=== PATIENT | male | born 1975 | race African-American/Black ===

== ENCOUNTER 2017-03-18 12:38 | Emergency (ER) | payer OTHER ==
[~2017-03-18] VITALS: Ht 175.3 cm; Wt 72.6 kg
[2017-03-18 13:00] VITALS: BP 146/93
[2017-03-18] MEDS ORDERED: AMOX500C PO (13:23)
--- NOTE | 2017-03-18 13:23 | PHYS DOC ---
Past Medical History Past Medical History: No Pertinent History Past Surgical History: Other Additional Past Surgical Histo: RIGHT TEAR DUCT REPAIR Additional Information: 0.5 PPD Alcohol Use: Heavy Drug Use: None Adult General Chief Complaint Chief Complaint: DENTAL PROBLEM HPI HPI Patient is a 42 year old male presents emergency Department stating he's having dental pain. He states he's been having the pain for the last 2-3 days. He states his been taken 800 mg of ibuprofen for the pain and discomfort. Denies any foul taste denies any fever, chills or any nausea vomiting. Patient also states that he has a few loose teeth. He denies any trauma or injury. Review of Systems Review of Systems Constitutional: Denies fever or chills [] Eyes: Denies change in visual acuity, redness, or eye pain [] HENT: Denies nasal congestion or sore throat. Complaint of dental pain Respiratory: Denies cough or shortness of breath [] Cardiovascular: No additional information not addressed in HPI [] GI: Denies abdominal pain, nausea, vomiting, bloody stools or diarrhea [] : Denies dysuria or hematuria [] Musculoskeletal: Denies back pain or joint pain [] Integument: Denies rash or skin lesions [] Neurologic: Denies headache, focal weakness or sensory changes [] Endocrine: Denies polyuria or polydipsia [] Allergies Allergies Allergies Coded Allergies Type Severity Reaction Last Updated Verified No Known Drug Allergies 05/01/15 No Physical Exam Physical Exam Constitutional: Well developed, well nourished, no acute distress, non-toxic appearance. [] HENT: Normocephalic, atraumatic, bilateral external ears normal, oropharynx moist, no oral exudates, nose normal. Bilateral tympanic membranes appear to be normal. Patient with abscess noted along the #4 tooth. Patient with no erythematous no exudate and no redness noted in the throat area. No anterior cervical adenopathy noted. Eyes: PERRLA, EOMI, conjunctiva normal, no discharge. [] Neck: Normal range of motion, no tenderness, supple, no stridor. [] Cardiovascular:Heart rate regular rhythm, no murmur [] Lungs & Thorax: Bilateral breath sounds clear to auscultation [] Skin: Warm, dry, no erythema, no rash. [] Back: No tenderness Extremities: No tenderness, no cyanosis, no clubbing, ROM intact, no edema. [] Neurologic: Alert and oriented X 3, normal motor function, normal sensory function, no focal deficits noted. [] Psychologic: Affect normal, judgement normal, mood normal. [] Current Patient Data Vital Signs Vital Signs Date Time Temp Pulse Resp B/P (MAP) Pulse Ox O2 Delivery O2 Flow Rate FiO2 03/18/17 13:00 98.3 72 20 100 Room Air 98.3 EKG EKG [] Radiology/Procedures Radiology/Procedures [] Course & Med Decision Making Course & Med Decision Making Pertinent Labs and Imaging studies reviewed. (See chart for details) Recommended plenty of fluids, Tylenol or ibuprofen for pain and discomfort. Patient will be placed on amoxicillin 4 times a day. Recommended the patient use warm salt water mouth rinses 4 times a day and prior to bedtime. Recommended to continue to brush and floss teeth twice a day. Recommended following up with the dentist within the next week. Signs symptoms to return back to emergency department as been provided. Patient agrees with discharge instructions treatment regimens and follow-up recommendations. [] Dragon Disclaimer Dragon Disclaimer This electronic medical record was generated, in whole or in part, using a voice recognition dictation system. Departure Departure Impression: Primary Impression: Dental abscess Disposition: 01 HOME, SELF-CARE Condition: STABLE Referrals: NO PCP (PCP) Patient Instructions: Dental Abscess Additional Instructions: Medication as prescribed. Tylenol or ibuprofen for fever chills generalized body aches and discomfort as well as for pain. Warm salt water mouth rinses 4 times a day and prior to bedtime. Plusher teeth and pressure teeth at least twice day. Follow-up to her dentist within the next week. Return back to emergency prior signs and symptoms of become worse. Scripts Amoxicillin (AMOXICILLIN) 500 Mg Capsule 1 CAP PO QID, #40 CAP Prov: NE PERERA APRN 03/18/17 NE PERERA [facility] Mar 18, 2017 13:23
== END 2017-03-18 13:30 | disposition home or self-care (01) ==
LOC: ER 12:38
DX: K04.7 Periapical abscess without sinus (principal); F17.200 Nicotine dependence, unspecified, uncomplicated; F10.10 Alcohol abuse, uncomplicated
CPT/HCPCS: 99283

== ENCOUNTER 2018-10-11 15:22 | Emergency (ER) | payer SELFPAY ==
[~2018-10-11] VITALS: Ht 182.9 cm; Wt 72.6 kg
[~2018-10-11 15:22] MED LIST: AMOX500C PO
[2018-10-11 15:34] VITALS: BP 129/88
[2018-10-11] MEDS: IBUPROFEN 600 MG TABLET. PO ONE (16:04)
[2018-10-11] MEDS ORDERED: METH-38 PO (16:06)
[2018-10-11] MEDS: METHOCARBAMOL 500 MG TABLET PO ONE (16:06)
--- NOTE | 2018-10-11 16:06 | PHYS DOC ---
Past Medical History Past Medical History: No Pertinent History (KATINA CHICAS APRN) Past Surgical History: Other Additional Past Surgical Histo: RIGHT TEAR DUCT REPAIR (KATINA CHICAS APRN) Alcohol Use: Heavy Drug Use: None (KATINA CHICAS APRN) Adult General Chief Complaint Chief Complaint: HIP PAIN HPI HPI 43-year-old male presents to ER for complaints of lower back pain radiating into bilateral hips. Pt reports he woke this morning having the pain denying any pain yesterday. Patient denies any falls or recent injuries. Patient reports he has more pain while walking or bending over. Patient states when he raises his legs he has increased pain in the upper part of his posterior legs. Patient denies numbness or tingling, swelling, inability to ambulate, or skin discoloration in bilateral lower extremities. Patient denies any recent travel or past history of lower extremity issues. Patient denies taking any over-the- counter medications prior to arrival for pain. Patient reports he did drink 2 beers hoping that would decrease his pain. 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 (KATINA CHICAS APRN) Review of Systems Review of Systems Constitutional: Denies fever or chills [] Respiratory: Denies cough or shortness of breath [] Cardiovascular: No additional information not addressed in HPI [] GI: Denies abdominal pain, N/V. Denies saddle anesthesia : Denies dysuria/hematuria or change in urinary pattern. Denies incontinence of bowel or bladder Musculoskeletal: Reports lower back pain radiating into lateral hips and upper posterior lower extremities bilat. Integument: Denies rash, swelling or skin lesions [] Neurologic: Denies headache, focal weakness or sensory changes All other systems were reviewed and found to be within normal limits, except as documented in this note. (KATINA CHICAS APRN) Current Medications Current Medications Current Medications Medications (Trade) Dose Ordered Sig/Zarina Start Time Stop Time Status Last Admin Dose Admin Ibuprofen (Motrin) 600 mg 1X ONCE 10/11/18 16:00 10/11/18 16:01 DC 10/11/18 16:04 600 MG Methocarbamol (Robaxin) 500 mg 1X ONCE 10/11/18 16:00 10/11/18 16:01 DC 10/11/18 16:06 500 MG (JULY BILLINGSLEY DO) Allergies Allergies Allergies Coded Allergies Type Severity Reaction Last Updated Verified No Known Drug Allergies 05/01/15 No (JULY BILLINGSLEY DO) Physical Exam Physical Exam Constitutional: Well developed, well nourished, no acute distress, non-toxic appearance.Steady unassisted gait HENT: Normocephalic, atraumatic, oropharynx moist Eyes: Pupils equal, conjunctiva normal, no discharge. [] Neck: Normal range of motion, no tenderness, supple, no stridor. [] Cardiovascular: Heart rate regular Lungs & Thorax: Resp. equal/nonlabored Skin: Warm, dry, no erythema, no rash. [] Back: Tender on palp. lt lower back- no midline spinal tenderness/palp. deformity- full ROM of back, no CVA tenderness. Tender on palp. lt lower back into lateral hip- no palp. deformity. Tender rt lateral hip without rt lower back pain. Extremities: Pelvis stable. , no cyanosis, no clubbing, ROM intact bilat. LEs, no edema. Calf size symmetric bilat. and nontender. 2+ posterior tibial bilat. Neurologic: Alert and oriented X 3, normal motor function, normal sensory function, no focal deficits noted. [] Psychologic: Affect normal, judgement normal, mood normal. [] (KATINA CHICAS APRN) Current Patient Data Vital Signs Vital Signs Date Time Temp Pulse Resp B/P (MAP) Pulse Ox O2 Delivery O2 Flow Rate FiO2 10/11/18 15:34 98.8 94 16 129/88 (102) 98 Room Air 98.8 (JULY BILLINGSLEY DO) EKG EKG [] (KATINA CHICAS APRN) Radiology/Procedures Radiology/Procedures [] (KATINA CHICAS APRN) Course & Med Decision Making Course & Med Decision Making Pt was evaluated in the ER for complaints of lower back pain radiating into bilateral hips. 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 Patient denied any [id number] medications prior to arrival he did report he had drank 2 beers in hopes of pain decreasing. Patient was not intoxicated and cooperative during his exam. Discussion had with patient regarding sciatica along with plans for oral ibuprofen and Robaxin- discussed no additional etoh while on Robaxin- pt verbalized understanding. Patient will be provided with prescription for Robaxin with discharge paperwork and advised on [id number] ibuprofen and/or Tylenol as directed on container. Patient also advised on ice and heat application along with Epson salt soaks. Patient with clinic and physician referral information with discharge paperwork for follow-up purposes as patient does not currently have primary care physician. Patient was PMS intact in bilateral lower extremities with steady unassisted gait. Patient provided on signs and symptoms to return to ER for an discharge instructions were discussed. No imaging obtained during this ER visit as patient had no midline spinal tenderness and denied any incontinence of bowel or bladder, saddle anesthesia, or recent falls or injuries. (KATINA CHICAS APRN) Dragon Disclaimer Dragon Disclaimer This electronic medical record was generated, in whole or in part, using a voice recognition dictation system. (KATINA CHICAS APRN) Departure Departure Impression: Primary Impression: Sciatica Additional Impression: Back pain Disposition: HOME, SELF-CARE Condition: STABLE Referrals: NO PCP (PCP) Patient Instructions: Back Pain, Adult, Sciatica Additional Instructions: Tylenol and/or ibuprofen as directed on container as needed for pain. Ice and/ or heat location to affected area every 3-4 hours for 20-30 minutes at a time avoiding direct ice contact to skin. Do not drink alcohol if taking the prescribed Robaxin prescription. No driving while on this medication as well. Increase water intake daily. If symptoms persist follow-up with primary care physician for reevaluation and further care. Scripts Methocarbamol (ROBAXIN-750) 750 Mg Tablet 750 MG PO TID PRN for PAIN, #9 TAB 0 Refills Prov: KATINA CHICAS APRN 10/11/18 Attending Signature Attending Signature I have reviewed the PA/CREATIVE ASSISTANT's note and plan of care. I was available for consultation as needed during the patient's visit in the emergency department. I agree with the clinical impression, plan, and disposition. (JULY BILLINGSLEY DO) Problem Qualifiers KATINA CHICAS APRN Oct 11, 2018 16:06 JULY BILLINGSLEY DO Oct 12, 2018 00:15
== END 2018-10-11 16:20 | disposition home or self-care (01) ==
LOC: ER 15:22
DX: M54.41 Lumbago with sciatica, right side (principal); M54.42 Lumbago with sciatica, left side; F10.20 Alcohol dependence, uncomplicated; Y90.9 Presence of alcohol in blood, level not specified
CPT/HCPCS: 99283

== ENCOUNTER 2021-06-13 15:10 | Emergency (ER) | payer BC ==
[~2021-06-13] VITALS: Ht 175.3 cm; Wt 68.0 kg
[~2021-06-13 15:10] MED LIST changes: +METH-38 PO
[2021-06-13 16:53] VITALS: BP 187/90
[2021-06-13] MEDS ORDERED: HYDROcodone/APAP 5/325MG 1 TAB TABLET PO ONE (17:00)
[2021-06-13] MEDS ORDERED: DEXAMETHASONE 4 MG TABLET PO ONE (17:00)
[2021-06-13] MEDS ORDERED: IBUP-1007 PO (17:12)
[2021-06-13] MEDS ORDERED: HYDR-2761 PO (17:12)
[2021-06-13] MEDS ORDERED: LIDO700A21 TP (17:12)
--- NOTE | 2021-06-13 17:18 | PHYS DOC ---
Past Medical History Past Medical History: No Pertinent History Additional Past Medical Histor: chronic back pain Past Surgical History: No Surgical History, Other Additional Past Surgical Histo: RIGHT TEAR DUCT REPAIR Smoking Status: Current Every Day Smoker Alcohol Use: Heavy Drug Use: None General Adult EDM: Chief Complaint: BACK PAIN - NO INJURY HPI: HPI: Patient is a 46 year old male who presents with chronic low back pain. He states over the weekend he went to get up out of the chair and he was having a hard time and having sharp shooting pain that is going up his back and down his leg slightly. States he has had this before. He states has been taking ibuprofen but is not working. He states he was unable to work due to this. He states he was laying in bed all weekend. Currently rates his pain at a 7 out of 10. In the ED he is ambulatory with a steady gait. Review of Systems: Review of Systems: Constitutional: Denies fever or chills. [] Eyes: Denies change in visual acuity. [] HENT: Denies nasal congestion or sore throat. [] Respiratory: Denies cough or shortness of breath. [] Cardiovascular: Denies chest pain or edema. [] GI: Denies abdominal pain, nausea, vomiting, bloody stools or diarrhea. [] : Denies dysuria. [] Musculoskeletal: + Low back pain, + sharp shooting pain up back in down into the gluteus or denies joint pain. [] Integument: Denies rash. [] Neurologic: Denies headache, focal weakness or sensory changes. [] Endocrine: Denies polyuria or polydipsia. [] Lymphatic: Denies swollen glands. [] Psychiatric: Denies depression or anxiety. [] Heart Score: C/O Chest Pain: No Current Medications: Current Medications Medications (Trade) Dose Ordered Sig/Zarina Start Time Stop Time Status Last Admin Dose Admin Acetaminophen/ Hydrocodone Bitart (Lortab 5/325) 1 tab 1X ONCE 06/13/21 17:00 06/13/21 17:04 DC Dexamethasone (Decadron) 10 mg 1X ONCE 06/13/21 17:00 06/13/21 17:04 DC Allergies: Allergies: Allergies Coded Allergies Type Severity Reaction Last Updated Verified No Known Drug Allergies 05/01/15 No Physical Exam: PE: Constitutional: Well developed, well nourished, no acute distress, non-toxic appearance. [] HENT: Normocephalic, atraumatic, bilateral external ears normal, oropharynx moist, no oral exudates, nose normal. [] Eyes: PERRLA, EOMI, conjunctiva normal, no discharge. [] Neck: Normal range of motion, no tenderness, supple, no stridor. [] Cardiovascular:Heart rate regular rhythm, no murmur [] Lungs & Thorax: Bilateral breath sounds clear to auscultation [] Abdomen: Bowel sounds normal, soft, no tenderness, no masses, no pulsatile masses. [] Skin: Warm, dry, no erythema, no rash. [] Back: No tenderness, no CVA tenderness. [] Extremities: No tenderness, no cyanosis, no clubbing, ROM intact, no edema. [] Neurologic: Alert and oriented X 3, normal motor function, normal sensory function, no focal deficits noted. [] Psychologic: Affect normal, judgement normal, mood normal. [] Normal physical exam Current Patient Data: Vital Signs: Vital Signs Date Time Temp Pulse Resp B/P (MAP) Pulse Ox O2 Delivery O2 Flow Rate FiO2 06/13/21 16:53 98.8 86 16 187/90 (122) 98 Room Air 98.8 EKG: EKG: [] Radiology/Procedures: Radiology/Procedures: [] Course & Med Decision Making: Course & Med Decision Making Pertinent Labs and Imaging studies reviewed. (See chart for details) See HPI. Denies numbness or tingling, focal weakness, loss of bowel bladder, fall, injury. Ambulatory with a steady gait. Speaks in full clear sentences. Can bend at the waist without complication. Moving all extremities equally with equal strengths groups. Skin pink warm and dry. No tenderness to his back. No extremity edema. Denies any urinary symptoms. Denies fever. Neurologically intact. [] Dragon Disclaimer: Dragon Disclaimer: This electronic medical record was generated, in whole or in part, using a voice recognition dictation system. Departure Departure Impression: Primary Impression: Chronic low back pain Qualified Codes: M54.41 - Lumbago with sciatica, right side; G89.29 - Other chronic pain Additional Impression: Sciatica Qualified Codes: M54.31 - Sciatica, right side Disposition: 01 HOME / SELF CARE / HOMELESS Condition: STABLE Referrals: NO PCP (PCP) Patient Instructions: Chronic Back Pain, Sciatica with Rehab-Sports[facility] Additional Instructions: Follow-up with primary care provider soon as possible. Take medication as pre scribed and with food. You need to stay up and walking around and moving as it will help your pain. Remember your medication can make you sleepy so you should not drive or work with this medication. Scripts Lidocaine (Lidocaine PATCH ) 1 Each Adh..patch 1 EACH TP DAILY for FOR LOCAL PAIN, #7 PATCH REMOVE AFTER 12 HOURS Prov: NE SKAGGS APRN 06/13/21 Ibuprofen (IBUPROFEN) 600 Mg Tablet 600 MG PO PRN Q6HRS PRN for INFLAMMATION, #20 TAB Prov: NE SKAGGS APRN 06/13/21 Hydrocodone Bit/Acetaminophen (HYDROCODONE-APAP 5-325 ) 1 Tab Tablet 1 TAB PO PRN Q6HRS PRN for PAIN, #5 TAB 0 Refills Prov: NE SKAGGS APRN 06/13/21 NE SKAGGS APRN Jun 13, 2021 17:17
== END 2021-06-13 17:45 | disposition home or self-care (01) ==
LOC: ER 15:10
DX: G89.29 Other chronic pain (principal); M54.50 Low back pain, unspecified; F17.200 Nicotine dependence, unspecified, uncomplicated
CPT/HCPCS: 99283

== ENCOUNTER 2021-06-29 08:28 | Emergency (ER) | payer BC ==
[~2021-06-29] VITALS: Ht 175.3 cm; Wt 66.3 kg
[~2021-06-29 08:28] MED LIST changes: +HYDR-2761 PO; +IBUP-1007 PO; +LIDO700A21 TP
--- NOTE | 2021-06-29 11:00 | RAD ---
CT cervical spine without contrast. 06/29/2021 10:27 AM Indication:Reason: lower c-spine pain with upper l arm tingling / Spl. Instructions: / History: Comparison Study: None Technique: Multidetector CT imaging of the cervical spine was obtained without administration of cont rast. Findings: There is no evidence of acute fracture or alignment abnormality of the cervical spine. Vert ebral body heights and disc spaces are maintained. The atlantoaxial articulation is within normal li mits. There is no prevertebral soft tissue swelling. Soft tissues are otherwise unremarkable. No bony compromise of the spinal canal is seen. Impression: No evidence of acute fracture or alignment abnormality of the cervical spine CT DOSING PQRS STATEMENT: One or more of the following individualized dose reduction techniques were utilized for this examinat ion: 1. Automated exposure control 2. Adjustment of the mA and/or kV according to patient size 3. Use of iterative reconstruction technique Electronically signed by: Moo Kaminski MD (06/29/2021 10:57 AM) [id number]
--- NOTE | 2021-06-29 11:02 | RAD ---
CT lumbar spine without contrast. 06/29/2021 10:27 AM Indication:Reason: midline lumbar pain radiated to lle / Spl. Instructions: / History: Comparison Study: None Technique: Multidetector CT imaging of the lumbar spine was obtained without administration of contra st. Findings: There is no evidence of acute fracture or alignment abnormality of the lumbar spine. Verteb ral Body heights and disc spaces are maintained. There is no spondylolysis or spondylolisthesis. Ther e is no prevertebral soft tissue swelling. Soft tissues are otherwise unremarkable. No bony compromis e of the spinal canal is seen. Impression: No evidence of acute fracture or alignment abnormality of the lumbar spine CT DOSING PQRS STATEMENT: One or more of the following individualized dose reduction techniques were utilized for this examinat ion: 1. Automated exposure control 2. Adjustment of the mA and/or kV according to patient size 3. Use of iterative reconstruction technique Electronically signed by: Moo Kaminski MD (06/29/2021 11:00 AM) [id number]
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
[2021-06-29] MEDS ORDERED: HYDROcodone/APAP 5/325MG 1 TAB TABLET PO ONE (11:15)
[2021-06-29] MEDS ORDERED: DEXAMETHASONE SOD PHOS 20 MG/5 ML VIAL. IM ONE (11:15)
[2021-06-29 11:47] LABS: BILIRUBIN,URINE NEGATIVE (NEG); CLARITY,URINE CLEAR; COLOR,URINE YELLOW; NITRITE,URINE NEGATIVE (NEG); PROTEIN,URINE NEGATIVE (NEG-TRACE); UROBILINOGEN,URINE 0.2 mg/dL (0.2 mg/dL)
[2021-06-29 11:58] LABS: BACTERIA,URINE 0 /HPF (0-FEW); RBC,URINE 0 /HPF (0-2); WBC,URINE 0 /HPF (0-4)
[2021-06-29] MEDS ORDERED: PRED20TA PO (12:34)
[2021-06-29] MEDS ORDERED: IBUP-1007 PO (12:34)
[2021-06-29 12:57] VITALS: BP 140/95
== END 2021-06-29 13:04 | disposition home or self-care (01) ==
LOC: ER 08:28
DX: M54.50 Low back pain, unspecified (principal); G89.29 Other chronic pain; R20.2 Paresthesia of skin; M79.605 Pain in left leg; M54.2 Cervicalgia; M54.6 Pain in thoracic spine
CPT/HCPCS: 72125; 72131; 81001; 93005; 96372; 99285; J1100